=== PATIENT | female | born 1990 | race Two or more races ===

== ENCOUNTER 2022-07-16 22:59 | Emergency (ER) | payer MEDICAID, OTHER ==
[2022-07-17] MEDS ORDERED: HYDROcodone-ACET 5/325MG TAB PO ONE (01:15)
[2022-07-17] MEDS ORDERED: ONDANSETRON ODT 4 MG TAB PO ONE (01:15)
[2022-07-17] MEDS ORDERED: TETANUS-DIPTH-ACEL PERTUSSIS 0.5ML SYR Tdap IM ONE (01:15)
[2022-07-17] MEDS ORDERED: AMOX-277 PO (01:54)
[2022-07-17 06:19] VITALS: BP 127/81
== END 2022-07-17 06:26 | disposition home or self-care (01) ==
LOC: ER 22:59
DX: S01.511A Laceration without foreign body of lip, initial encounter (principal); F17.210 Nicotine dependence, cigarettes, uncomplicated; F12.90 Cannabis use, unspecified, uncomplicated; W54.0XXA Bitten by dog, initial encounter; Y93.89 Activity, other specified; Y92.89 Other specified places as the place of occurrence of the external cause; Y99.8 Other external cause status
CPT/HCPCS: 12011; 90471; 90715; 99283; Q0162